=== PATIENT | female | born 1970 | race Hispanic/Latino ===

== ENCOUNTER 2023-05-20 19:12 | Emergency (ER) | payer BC ==
[~2023-05-20] VITALS: Ht 157.5 cm; Wt 80.3 kg
[2023-05-20] MEDS ORDERED: PREDNISONE 20 MG TABLET PO ONE (22:00)
[2023-05-20] MEDS ORDERED: DIPHENHYDRAMINE HCL 25 MG CAPSULE PO ONE (22:00)
[2023-05-20] MEDS ORDERED: FAMOTIDINE 20MG TAB PO ONE (22:00)
[2023-05-20] MEDS ORDERED: DIPH25TA20 PO (22:36)
[2023-05-20] MEDS ORDERED: PRED20TA3 PO (22:36)
[2023-05-20] MEDS ORDERED: FAMO20TA8 PO (22:36)
[2023-05-20 22:39] VITALS: BP 141/86; PULSE 80; RESP 20; O2SAT 100
== END 2023-05-20 22:45 | disposition home or self-care (01) ==
LOC: EDH 19:12
DX: T63.441A Toxic effect of venom of bees, accidental (unintentional), initial encounter (principal); Z79.52 Long term (current) use of systemic steroids; Y92.89 Other specified places as the place of occurrence of the external cause
CPT/HCPCS: 99283; Q0163